=== PATIENT | male | born 1940 | race Caucasian/White ===

== ENCOUNTER 2019-07-18 13:54 | Emergency (ER) | payer OTHER, SELFPAY ==
--- NOTE | ~2019-07-18 | XR_ITS ---
EXAMINATION: XR chest 2V DATE: 07/18/2019 14:30 INDICATION: Left lower chest pain TECHNIQUE: frontal and lateral views of the chest were obtained. COMPARISON: None FINDINGS: Minimal streaky bibasilar atelectasis. No pleural effusion or pneumothorax. The cardiomediastinal [place] is normal. Severe thoracolumbar spondylosis. Mild anterior wedging of a couple vertebral bodi es, likely benign and L1. IMPRESSION: 1. Minimal streaky bibasilar opacities and favor atelectasis over pulmonary edema or pneumonia. Reviewed, dictated and finalized at location A. LFISH HARVESTER IMPRESSION: 1. Minimal streaky bibasilar opacities and favor atelectasis over pulmonary balbir ma or pneumonia.
--- NOTE | ~2019-07-18 | CT_ITS ---
EXAMINATION: CTA chest PE protocol DATE: 07/18/2019 15:40 INDICATION: Left-sided pleuritic chest pain. TECHNIQUE: Computed tomography (CT) pulmonary angiogram of the chest was performed with 100 mL Omnipa que-350 intravenous contrast. Additional 3D reconstructions utilizing coronal maximum intensity proje ction (MIP) were performed. Automated exposure control and iterative reconstruction technique were em ployed. The dose-length product was 766.33 mGy-cm. COMPARISON: None FINDINGS: Excellent contrast opacification of the pulmonary arteries. There is mild streak artifact from dense contrast in the superior vena cava and right atrium. Mild scattered respiratory motion artifact which does not significantly limit evaluation. No pulmonary embolism. Mild dependent atelectasis in the ri ght lower lobe. No pneumonia, pulmonary edema or pleural effusion. Small bilateral calcified pulmonar y nodules and bilateral calcified hilar lymph nodes consistent with old granulomatous disease. Heart size is normal. No pericardial effusion. Atherosclerotic coronary artery calcifications. Thoracic aor ta is normal in caliber with no dissection. There is layering fluid throughout the esophagus which co uld be related to recent ingestion or reflux. No pathologically enlarged thoracic lymphadenopathy. Th ere are few calcified gallstones layering in the dependent aspect of the normal-appearing gallbladder . Splenic calcification consistent with old granulomatous disease. Moderate to severe thoracic spondy losis. IMPRESSION: 1. No pulmonary embolism or other acute cardiopulmonary disease. 2. Fluid layering throughout the esophagus. Correlate clinically for gastroesophageal reflux disease. 3. Cholelithiasis. Reviewed, dictated and finalized at location A. ARY CLINICIAN IMPRESSION: 1. No pulmonary embolism or other acute cardiopulmonary disease. 2. Fluid layering throughout the esophagus. Correlate clinically for gastroesop hageal reflux disease. 3. Cholelithiasis.
--- NOTE | 2019-07-18 13:49 | ECG_ITS ---
Measurements Intervals [place] Rate: 70 P: 10 KS: 185 QRS: -32 QRSD: 101 T: 30 QT: 401 QTc: 433 Interpretive Statements SINUS RHYTHM LEFT AXIS DEVIATION DELAYED PRECORDIAL R/S TRANSITION BASELINE ARTIFACT- I, III, AVL, AVF BORDERLINE ECG Electronically Signed On 07-18-2019 17:48:17 WET MACHINE CUTTER by Leighton Lima D.O.
[2019-07-18 13:54] VITALS: BP 170/86; PULSE 71; RESP 20; TEMP 36.4; O2SAT 98
[2019-07-18 13:58] VITALS: O2SAT 98
--- NOTE | 2019-07-18 14:00 | ED.CHESTPAIN ---
HPI - Chest Pain General Chief Complaint: Chest Pain Stated Complaint: chest pain Time Seen by Provider: 07/18/19 13:56 Source: patient Mode of arrival: ambulatory Limitations: no limitations History of Present Illness HPI narrative: An 79 y/o male pt presents to the ED, with c/o sudden onset of lt sided sharp CP that began at 1100AM today. Pt states he was sitting at his kitchen table playing on his IPad when the pain began. Pt denies any episode similar to this in the past, and denies any recent heavy lifting or strenuous activities. Pt notes mild SOB, but denies nausea, cough, swelling or pain to BLE, or recent illness. He states that his pain worsens when attempting to sit up. Pt states that he thought it was heart burn at first, but that his pain is much worse than what he experiences with heartburn. He notes taking Aspirin x 81 mg daily. MD complaint: chest pain Onset (ago): hour(s) (4) Timing of current episode: constant Prior episodes: No Onset: other (sitting) Pain location: left chest Quality: sharp Exacerbating factors: other (sitting up) Associated symptoms: dyspnea (mild) Related Data Home Medications Medication Instructions Recorded Confirmed aspirin 81 mg tablet,delayed 81 mg PO DAILY 07/07/19 release atorvastatin 20 mg tablet 20 mg PO DAILY 07/07/19 blood sugar diagnostic #10 each 07/07/19 blood-glucose meter #1 each 07/07/19 cholecalciferol (vitamin D3) 50 2,000 unit PO DAILY cap 07/07/19 mcg (2,000 unit) capsule diazepam 5 mg tablet 5 mg PO .COMPLEX 07/07/19 diphenhydramine HCl 50 mg capsule 50 mg PO .COMPLEX PRN 07/07/19 omeprazole 40 mg capsule,delayed 40 mg PO .COMPLEX 07/07/19 release Allergies Allergy/AdvReac Type Severity Reaction Status Date / Time No Known Allergies Allergy Unverified 12/03/14 12:01 Review of Systems Review of Systems: All systems reviewed & are unremarkable except as noted in HPI and below Cardiovascular: Cardiovascular: Reports chest pain (sharp, lt sided) Respiratory: Respiratory: Denies cough and Reports dyspnea (mild) Gastrointestinal: Gastrointestinal: Denies nausea Musculoskeletal: Musculoskeletal: Denies other (swelling or pain to BLE) [facility] Past Medical History Medical History Diabetes mellitus HLD (hyperlipidemia) Social History Social History Smoking status: Former smoker Alcohol intake: current Exam Const: General: healthy appearing, no acute distress and other (Elderly) Nutritional Appearance: well nourished HENMT: Mouth: Yes lip normal and Yes moist mucous membranes Eyes: Conjunctivae: conjunctivae normal Pupils: Equal, round and reactive pupils present Chest: Chest palpation & inspection: tenderness (lt sided) Resp: Effort & Inspection: normal respiratory effort Auscultation: clear to auscultation bilaterally and no wheezes Cardio: Rate: regular rate Rhythm: regular rhythm Heart sounds: no murmurs GI: GI Palp: Yes Soft to palpation and No Tenderness to palpation present (GI) Auscultation: normal bowel sounds Back/Spine/Pelvis: Other: Full ROM Skin: General skin exam: normal color, dry skin and other (warm) Neuro: General: patient oriented x3 (alert) Speech: normal speech Extrem: General: full ROM, no clubbing, cyanosis or edema and no other (tenderness to BLE) Psych: Mental Status: mental status grossly normal Affect: normal affect Course Vital Signs Vital signs: Vital Signs Temperature 36.4 C L 07/18/19 13:54 Pulse Rate 71 07/18/19 13:54 Respiratory Rate 07/18/19 13:54 Blood Pressure 170/86 H 07/18/19 13:54 Pulse Oximetry 98 07/18/19 13:54 Temperature 36.8 C 07/18/19 17:05 Pulse Rate 87 07/18/19 17:05 Respiratory Rate 07/18/19 17:05 Blood Pressure 140/80 07/18/19 17:05 Pulse Oximetry 99 07/18/19 17:05 MDM - Chest Pain MDM Narrative M
[2019-07-18 14:20] LABS: Basophils Absolute Auto 0.1 K/mm3 (0.0-0.1); Basophils Percent Auto 0.7 % (0.2-1.2); Eosinophils Absolute Auto 0.1 K/mm3 (0-0.3); Eosinophils Percent Auto 1.5 % (0-4.4); Hematocrit 42.4 % (42.0-52.0); Immature Granulocyte Absolute 0.03 K/mm3 (0.00-0.031); Immature Granulocyte Percent A 0.3 % (0-0.5); Lymphocytes Absolute Auto 1.64 K/mm3 (0.9-3.2); Lymphocytes Percent Auto 18.1 % (18.3-44.2); Mean Corpuscular Hemoglobin 28.9 pg (26-34); Mean Corpuscular Volume 87.4 fl (80-100); Mean Platelet Volume 9.8 fl (7.4-10.4); Monocytes Absolute Auto 0.7 K/mm3 (0.1-0.6); Monocytes Percent Auto 7.9 % (2.6-8.5); Neutrophils Absolute Auto 6.5 K/mm3 (1.3-6.7); Neutrophils Percent Auto 71.5 % (45.5-73.1); Platelet Count Result 264 k/mm3 (150-375); Red Blood Count 4.85 M/mm3 (4.6-6.20); Red Cell Distribution Width 12.9 % (11.5-14.5); White Blood Count 9.1 K/mm3 (4.5-10.0)
[2019-07-18 14:28] LABS: INR 0.9; Partial Thromboplastin Time 32.3 SECONDS (22.3-36.8); Prothrombin Time 12.3 Seconds (11.1-14.7)
[2019-07-18 14:29] LABS: Blood Urea Nitrogen 15 mg/dL (9-20); Calcium 9.3 mg/dL (8.4-10.2); Carbon Dioxide 24 mmol/L (22-30); Chloride 97 mmol/L (98-107); Estimated Glomerular Filt Rate > 60; Glucose 110 mg/dL (75-110); Potassium 4.6 mmol/L (3.4-5.0); Sodium 137 mmol/L (137-145)
[2019-07-18 14:41] LABS: Troponin I < 0.012 ng/mL (0.000-0.034)
[2019-07-18 15:09] LABS: D Dimer 0.94 ug/mL (<0.48)
[2019-07-18] MEDS: ACETAMINOPHEN 500 MG TABLET 1000 MG PO (16:18)
[2019-07-18 16:25] VITALS: BP 172/98; PULSE 71; RESP 20; TEMP 36.6; O2SAT 95
[2019-07-18 17:05] VITALS: BP 140/80; PULSE 87; RESP 20; TEMP 36.8; O2SAT 99
== END 2019-07-18 17:07 | disposition home or self-care (01) ==
PROVIDERS: Emergency Medicine; Emergency Provider Emergency Medicine; PCP Emergency Medicine
DX: S29.011A Strain of muscle and tendon of front wall of thorax, initial encounter (principal); E11.9 Type 2 diabetes mellitus without complications; E78.5 Hyperlipidemia, unspecified; Z87.891 Personal history of nicotine dependence; Z79.82 Long term (current) use of aspirin; Z79.84 Long term (current) use of oral hypoglycemic drugs; X58.XXXA Exposure to other specified factors, initial encounter; R94.31 Abnormal electrocardiogram [ECG] [EKG]
CPT/HCPCS: 36415; 71046; 71275; 80048; 84484; 85025; 85380; 85610; 85730; 93005; 96374; 99284; A9270; J3360; Q9967

== ENCOUNTER 2022-09-20 08:36 | Outpatient (CLI) | payer OTHER, SELFPAY ==
--- NOTE | 2022-09-20 11:00 | NEURO_ITS ---
Impression: # Complains of nocturnal paresthesia and pain in left hand. # Moderate Carpal Tunnel Syndrome. # Left ulnar neuropathy around the elbow. # Needle/EMG exam abnormal. Nerve Conduction Studies Anti Sensory Summary Table Stim Site NR Peak (ms) P-T Amp (?V) Site1 Site2 Delta-P (ms) Dist (cm) Bonifacio (m/s) Left Median Anti Sensory (2-3nd Digit) Wrist 7.7 11.1 Wrist 2-3nd Digit 7.7 14.0 18 Wrist 7.7 10.4 Wrist 2-3nd Digit 7.7 14.0 18 Left Radial Anti Sensory (Base 1st Digit) Wrist 2.1 15.1 Wrist Base 1st Digit 2.1 0.0 Left Ulnar Anti Sensory (5th Digit) Wrist 2.5 29.8 Wrist 5th Digit 2.5 14.0 56 Motor Summary Table Stim Site NR Onset (ms) O-P Amp (mV) Site1 Site2 Delta-0 (ms) Dist (cm) Bonifacio (m/s) Left Median Motor (Abd Poll Brev) Wrist 6.5 1.4 Elbow Wrist 5.6 35.0 63 Elbow 12.1 1.9 Left Ulnar Motor (Abd Dig Minimi) Wrist 2.5 5.9 A Elbow Wrist 6.6 32.0 48 A Elbow 9.1 3.9 B Elbow Wrist 4.6 24.0 52 B Elbow 7.1 4.5 F Wave Studies NR F-Lat (ms) L-R F-Lat (ms) Left Median (Mrkrs) (Abd Poll Brev) 30.47 Left Ulnar (Mrkrs) (Abd Dig Min) 29.75 EMG Side Muscle Nerve Root Ins Act Fibs Amp Dur Recrt Comment Left 1stDorInt Ulnar C8-T1 Nml Nml Nml >12ms Reduced Left Ext Indicis Radial (Post Int) C7-8 Nml Nml Nml Nml Nml Left Ext Digitorum Radial (Post Int) C7-8 Nml Nml Nml Nml Nml Left BrachioRad Radial C5-6 Nml Nml Nml Nml Nml Left PronatorTeres Median C6-7 Nml Nml Nml Nml Nml Left Abd Poll Brev Median C8-T1 Nml Nml Nml >12ms Reduced Left ABD Dig Min Ulnar C8-T1 Nml Nml Nml >12ms Reduced MTDD
== END 2022-09-20 08:37 | disposition home or self-care (01) ==
LOC: ANHNEURO 08:37
PROVIDERS: PCP Emergency Medicine; Visit Provider Emergency Medicine
DX: G56.22 Lesion of ulnar nerve, left upper limb (principal); G56.00 Carpal tunnel syndrome, unspecified upper limb
CPT/HCPCS: 95886; 95909

== ENCOUNTER 2022-12-06 03:31 | Day surgery (SDC) | payer OTHER, SELFPAY ==
[2022-11-29 15:08] VITALS: BMI 33.3
--- NOTE | 2022-11-29 15:18 | PC.NURSE ---
Report to the Outpatient Waiting Room, entrance under the green pavilion located off [facility], at time _1 PM on date ____12/06/22___. Planned Procedure Time: ____2 PM____. Time changes happen often and if your time is changed the preop area will call you the afternoon before. - You and your visitor will be asked to self-screen and do not enter if you have any COVID symptoms. - A mask is optional within the hospital at this time. -MAY HAVE A LIGHT BREAKFAST Take the following medications with a SIP of water the morning of surgery: DO NOT STOP ANY OF YOUR OTHER PRESCRIPTION MEDICATIONS PRIOR TO SURGERY ?EXCEPT THE FOLLOWING Medications to discontinue per physician Date to take last dose Please no make-up, nail romanian, hairspray, perfume, deodorant, or body powder the day of surgery. No jewelry (including any body piercings) or valuables the day of surgery, leave them at home. Please take a shower or bath the night before, or the morning of, surgery with an antibacterial soap. Wear comfortable, loose fitting clothing. Children are encouraged to wear pajamas. - Jewelry must be removed prior to entering the operating room. Rings and piercings that are not removed may be cut off. - The hospital will not accept responsibility for valuables. - Please leave all valuables, including medications, at home the day of surgery. -MAY DRIVE YOURSELF TO/FROM HOSPITAL Follow any additional instructions given to you from your surgeon. If you or anyone in your household have experienced Covid symptoms in the past week, please notify your surgeon or the nurse liaison at the phone number below for possible testing. Telephone instructions given to ___PATIENT and asked if any additional questions and then verbalized understanding. Patient advised to call surgeon office or pre surgery nurse liaison [phone] if any additional questions.
[2022-12-06] VITALS (9 sets, daily range): BP systolic 159–188; BP diastolic 78–101; PULSE 70–75; RESP 16–20; TEMP 36.8; O2SAT 93–98
--- NOTE | 2022-12-06 07:15 | WPDHPUPDATE1 ---
History and Physical Update Update Date/Time: 12/06/22 07:15 History and Physical has been reviewed, including an updated exam of the patient. There are NO changes in the patient's condition. Risks, benefits, and alternatives have been discussed and questions answered. Patient agrees to proceed with procedure.
--- NOTE | 2022-12-06 08:22 | W.PM.PROC2 ---
Procedure Note - Detailed Date of Procedure 12/06/22 Pre-op Diagnosis Lt Carpal Tunnel Syndrome Post-op Diagnosis Same Procedure Performed Left open carpal tunnel release Surgeon Ghassan Mckinley MD Anesthesia Local Description of Procedure The right carpal canal area was marked on the patient this incision holding room. He was then taken to the operating room where he was placed supine on the operating table. A shoulder a little were little stiff the minutes to get the hand flat on the table. A time-out was held and confirmed. The surgical site was already marked satisfactorily. This area was carefully infiltrated with 1% lidocaine with epinephrine. This was done the usual fashion. of about 5 minutes was allowed for hemostatic effect and elected to proceed without tourniquet control. The skin incision was made as marked it without difficulty. The subcutaneous tissue was divided bluntly revealing palmar aponeurosis. This and underlying muscle and transverse retinaculum were incised with a 15 blade. The patient expressed sense of pain is be divided the retinaculum. Additional lidocaine with epinephrine was infused both sides of the retinaculum the end proximal . As we carefully proceeded using a 15 blade for most of the division patient again expressed pain proximally. We had to applied additional 1% lidocaine with epinephrine essentially was a median nerve block just proximal to the wrist crease. The he tolerated that quite well and the clear that his fingers began to go numb completely . The division was carried out under 3 point retraction no unusual anatomy was noted. The nerve had not been made edematous by the fusion into the nerve. The site was washed with saline and the skin was closed with interrupted 4-0 nylon interrupted sutures. The usual bandage was applied patient seemed comfortable time left the OR. These discharge instructions wound care and follow-up and prescription for oxycodone 5/325 and his pharmacy [facility] . The number of tablets was 6 Estimated Blood Loss 2 Tourniquet Time 0 Drains No Packing No Pathology None sent Complications No immediate complications Condition Stable Disposition Same day
== END 2022-12-06 08:48 | disposition home or self-care (01) ==
PROVIDERS: PCP Emergency Medicine; Visit Provider Plastic Surgery
PROC: (CPT 64721; principal; 2022-12-06 07:30)
DX: G56.02 Carpal tunnel syndrome, left upper limb (principal); K21.9 Gastro-esophageal reflux disease without esophagitis; E11.8 Type 2 diabetes mellitus with unspecified complications; Z79.82 Long term (current) use of aspirin; Z79.84 Long term (current) use of oral hypoglycemic drugs
CPT/HCPCS: 64721

== ENCOUNTER 2023-02-07 07:30 | Outpatient (RCR) | payer OTHER, SELFPAY ==
--- NOTE | 2023-01-14 11:03 | OTOPEVAL1 ---
Assessment and note entered by Esdras Kwong, OTR/Omar, CHT Evaluation Information Assessment Status Evaluation Diagnosis Stiffness left hand Subjective Information Patient is right handed. He is s/p left carpal tunnel release. 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 Reported Pain Level Pain Score 0: Self Report Additional Pain Score Comments Reporting no pain walking in today. He has occasional pains in the fingertips that increase to 4/10 when he tries to use his hands. Assessment OT Clinical Summary Patient referred to outpatient OT with dx of stiffness in his left hand. He is limited functionally due to stiffness, weakness, and pain. Skilled OT indicated to maximize functional flexibility and strength through HEP instruction and progression, modalities, therapeutic activities, and manual therapy. Plan of Care Interventions Therapeutic Exercise,Manual Therapy,Therapeutic Activities,Paraffin OT Services Indicated Yes Treatment Frequency and 1x/week for 3 weeks Duration These treatments will address the objective and functional deficits as defined above. The patient will be advanced safely and appropriately in order for the patient to progress towards his/her prior level of function. Additional exercises will be introduced and as well as a comprehensive home exercise program upon discharge, if needed, ?to ensure carryover of functional gains achieved in the clinic. This treatment plan has been reviewed and agreement upon by the patient.
--- NOTE | 2023-01-14 11:03 | OPREHPOC ---
Outpatient Therapy Plan of Care This is a Multidisciplinary Plan of Care that may contain components documented by all disciplines (PT, OT, and ST.) OT Problem 1 OT Problem #1 Knowledge Deficit OT Goal 1 Goal 1. Patient to be independent with instructed materials/HEP. Target Visit 4 OT Problem 2 OT Problem #2 Pain OT Goal 1 Goal 1. Patient to report reduced pain with left hand use/gripping tasks to 2/10 or less. Target Visit 4 OT Problem 3 OT Problem #3 Impaired Flexibility OT Goal 1 Goal 1. Be able to make a full fist with the left hand, measured by being able to touch the finger tips of II-V to the palm. Target Visit 4 OT Problem 4 OT Problem #4 Impaired Strength OT Goal 1 Goal 1. Increase left inspector scales strength to 40 lbs. Target Visit 4
--- NOTE | 2023-01-30 07:57 | PCOTNOTE ---
Patient did not show up for scheduled appointment this date.
--- NOTE | 2023-02-07 08:20 | OTOPDC ---
Assessment and note entered by Esdras Kwong, MIKAR/Omar, T Discharge Summary 02/07/23 Assessment Status Discharge Diagnosis Stiffness left hand Subjective Information Angelo is s/p left carpal tunnel release with residual hand stiffness, pain, and numbness. He has attended 4 outpatient OT sessions focused on improving functional flexibility and strength of the hand. He notes improved abilities to close his hand and use his hand to turn doorknobs. He continues to have some pain with fine motor tasks and reports he continues to have numbness that is limiting. He reports no change in his ability to open water/Gatorade drinks. Functional ROM improved - finger tip to palm measurements improved by 2-4 cm. He reports he is able to make a fist after doing his exercises, but that his fingers tend to stiffen up between sessions. His gear hobber strength remained unchanged. [place] continued to measure in the diminished protective threshold for digits I, II, and radial half of IV. III digit improved to diminished light touch threshold. Ulnar half of IV and digit V measure normal. Reported Pain Level Pain Score 0: Self Report Additional Pain Score Comments No pain at rest. Just reports numb . Increased pain with fine motor tasks, manipulating screws and nails, pain increases to 6/10. Assessment OT Clinical Summary Patient referred to outpatient OT with dx of stiffness in his left hand. He has made progress with therapy with improved functional flexibility. He continues to have some residual stiffness and weakness, however he is currently independent with his HEP to work on these areas. He states he is independent with all materials and is ready for discharge. No further skilled OT indicated at this time. Plan of Care OT Services Indicated No
== END 2023-02-07 10:20 | disposition home or self-care (01) ==
LOC: ANHOT 07:30
PROVIDERS: PCP Emergency Medicine; Visit Provider Plastic Surgery
DX: M25.642 Stiffness of left hand, not elsewhere classified (principal)
CPT/HCPCS: 97018; 97110; 97165

== ENCOUNTER 2024-03-03 08:51 | Outpatient (CLI) | payer OTHER, SELFPAY | END 2024-03-03 08:52 | disposition home or self-care (01) | LOC: ANHAUDIO 08:57 | PROVIDERS: PCP Emergency Medicine; Visit Provider Emergency Medicine | DX: H90.41 Sensorineural hearing loss, unilateral, right ear, with unrestricted hearing on the contralateral side (principal); H90.72 Mixed conductive and sensorineural hearing loss, unilateral, left ear, with unrestricted hearing on the contralateral side | CPT/HCPCS: 92557; 92567 ==

== ENCOUNTER 2024-06-01 13:33 | Outpatient (CLI) | payer OTHER, SELFPAY | END 2024-06-01 13:34 | disposition home or self-care (01) | LOC: ANHAUDIO 13:34 | PROVIDERS: PCP Emergency Medicine; Visit Provider Emergency Medicine | DX: H90.41 Sensorineural hearing loss, unilateral, right ear, with unrestricted hearing on the contralateral side (principal); H90.72 Mixed conductive and sensorineural hearing loss, unilateral, left ear, with unrestricted hearing on the contralateral side | CPT/HCPCS: 92557; 92567 ==